=== PATIENT | female | born 1970 | race Caucasian/White ===

== ENCOUNTER → 2018-08-04 | Outpatient (CLI) | payer MEDICAID, SELFPAY ==
--- NOTE | 2018-08-04 11:54 | BI_ITS ---
MAMMOGRAPHY - BILATERAL SCREENING REASON FOR EXAM: Female, 48 years old. Routine annual screening examination. PERTINENT HISTORY: Mother with breast cancer. Grandmother with breast cancer. Bilateral breast implants. TECHNIQUE: Digital bilateral breast yahaira (3D mammographic acquisition) in the CC and MLO projections. 2-D mediolateral oblique (MLO) and craniocaudad (CC) views of both breasts were obtained. CAD: Full Field Digital Mammography with Computer Added Detection was performed. COMPARISON: Comparison is made with prior study dated February 29, 2016 and October 24, 2014. FINDINGS: Breast Composition: The breasts are heterogeneously dense, which may obscure small masses. There is a 1 cm well-defined nodule in the upper central portion of the left breast. A similar-appearing 1 cm nodular densities also seen in the superior outer region of the left breast. Correlation with ultrasound is recommended. Stable appearance of the bilateral breast implants. No other significant abnormalities are identified. BI/SCREEN MAMM (CAD) W/YAHAIRA BILAT IMPRESSION: There are 2, 1 cm nodule seen in the left breast as described. Correlation with ultrasound is recommended. ASSESSMENT CATEGORY: BIRADS Category 0: Incomplete. Need additional imaging evaluation. A letter regarding these results will be sent to the patient by the facility within 30 days. Approximately 10% of breast cancers are not detected by mammography. A normal mammogram should not delay biopsy of a clinically suspicious abnormality. [id number] Electronically Signed: Warren Catherine, at 13:02 EDT , Service support ,
[2018-08-04 17:40] LABS: Absolute Lymphocyte Count 2.01 X10^3/ul (0.83-4.51); Absolute Neutrophil Count 4.4 X10^3/uL (2.0-7.7); Basophil# 0.03 X10^3/uL; Basophil% 0.4 % (0-1); Eosinophil# 0.04 X10^3/uL; Eosinophils% 0.6 % (0-5); Hematocrit 37.2 % (37-47); Hemoglobin 11.9 g/dl (12.0-15.0); Lymphocyte # 2.01 X10^3/ul (4.0); Mean Corpuscular Hgb 25.9 pg (27.0-32.0); Mean Corpuscular Volume 80.9 fL (81-99); Monocyte# 0.69 X10^3/uL; Monocyte% 9.6 % (0-10); Neutrophil # 4.38 X10^3/uL (2.7-7.7); Neutrophil % 61.1 % (47-70); Platelet Count 227 K/mm3 (150-450); RBC Distribution Width CV 17.7 % (11.6-14.6); RBC Distribution Width SD 51.5 fl (35.1-43.9); White Blood Count 7.2 K/mm3 (4.4-11.0)
[2018-08-04 17:50] LABS: POSITIVE COUNT NO; POSITIVE DIFFERENTIAL NO; POSITIVE MORPHOLOGY NO
[2018-08-04 17:56] LABS: ALB/GLOB Ratio 1.2 RATIO (0.9-2.4); AST(SGOT) 19 U/L (15-37); Alanine Aminotransfer ALT/SGPT 22 U/L (13-56); Albumin, Serum 3.9 g/dL (3.2-5.0); Alkaline Phosphatase 49 U/L (45-117); Anion Gap 6 (5-15); BUN 20 mg/dL (7-18); BUN/Creat Ratio 22.1 RATIO (10-20); Chloride 105 mmol/L (98-107); EST Glomerular Filtration Rate 70 mL/min (>60); Est Glom Filt Rate - Afr Amer 85 mL/min (>60); Globulin 3.3 g/dL (2.2-4.2); Glucose 90 mg/dL (74-106); Potassium 3.8 mmol/L (3.5-5.1); Protein, Total 7.2 g/dL (6.4-8.2); Sodium Level 136 mmol/L (136-145); Thyroid Stim Hormone (TSH) 6.63 uIU/mL (0.358-3.74)
== END | disposition home or self-care (01) ==
PROVIDERS: Family Provider Family Medicine; PCP Family Medicine; Referring Provider Family Medicine; Visit Provider Family Medicine
DX: Z12.31 Encounter for screening mammogram for malignant neoplasm of breast (principal); R53.83 Other fatigue; E07.9 Disorder of thyroid, unspecified; I87.2 Venous insufficiency (chronic) (peripheral)
CPT/HCPCS: 36415; 77063; 77067; 80053; 84443; 85025

== ENCOUNTER → 2018-08-09 10:19 | Outpatient (CLI) | payer MEDICAID, SELFPAY ==
--- NOTE | 2018-08-09 10:23 | US_ITS ---
STUDY: ULTRASOUND BREAST - LEFT REASON FOR EXAM: Female, 48 years old. TECHNIQUE: Axial and longitudinal images of the LEFT breast were performed with a high resolution ultrasound transducer. COMPARISON: None. FINDINGS: LEFT Breast: There are 3 small cyst in the upper outer quadrant of the left breast. The largest measures 1.3 x 1.3 x 0.8 cm no obvious masses are identified otherwise. There is intact breast implant. US/Breast Limited Unilateral IMPRESSION: Focal area of fibrocystic disease upper outer quadrant Electronically Signed: Gael Doe, at 16:42 EDT Tel , Service support ,
--- NOTE | 2018-08-09 11:33 | US_ITS ---
STUDY: ULTRASOUND OF THE FEMALE PELVIS - COMPLETE REASON FOR EXAM: Female, 48 years old. Menorrhagia TECHNIQUE: Transabdominal and Transvaginal TECHNICAL QUALITY: Adequate. COMPARISON: None. FINDINGS: The uterus is anteverted and is in a midline position. The uterus measures 9.7 x 5.8 x 5.2 cm. Normal uterine cervix. The endometrium measures 5 mm in thickness, and is hyperechoic. There is an 8 mm cyst in the endometrium. There is no demonstrated myometrial mass. The right ovary is visualized. The right ovary measures 3.4 x 3.2 x 1.9 cm. There is no right ovarian cyst or ovarian mass. There is no visualized right adnexal mass or complex lesion. There is normal arterial and normal venous vascularity. The left ovary is visualized. The left ovary measures 3.8 x 2.7 x 1.7 cm. There is no left ovarian cyst or ovarian mass. There is no visualized left adnexal mass or complex lesion. There is normal arterial and normal venous vascularity. There is no fluid in the cul-de-sac. US/Pelvic (Non ) IMPRESSION: Subcentimeter cyst in the endometrium. Otherwise, normal uterus. Normal bilateral ovaries with normal Doppler flow. Electronically Signed: Scar Faustin, at 18:23 EDT Tel , Service support ,
--- NOTE | 2018-08-09 12:19 | US_ITS ---
STUDY: ULTRASOUND OF THE FEMALE PELVIS - COMPLETE REASON FOR EXAM: Female, 48 years old. Menorrhagia TECHNIQUE: Transabdominal and Transvaginal TECHNICAL QUALITY: Adequate. COMPARISON: None. FINDINGS: The uterus is anteverted and is in a midline position. The uterus measures 9.7 x 5.8 x 5.2 cm. Normal uterine cervix. The endometrium measures 5 mm in thickness, and is hyperechoic. There is an 8 mm cyst in the endometrium. There is no demonstrated myometrial mass. The right ovary is visualized. The right ovary measures 3.4 x 3.2 x 1.9 cm. There is no right ovarian cyst or ovarian mass. There is no visualized right adnexal mass or complex lesion. There is normal arterial and normal venous vascularity. The left ovary is visualized. The left ovary measures 3.8 x 2.7 x 1.7 cm. There is no left ovarian cyst or ovarian mass. There is no visualized left adnexal mass or complex lesion. There is normal arterial and normal venous vascularity. There is no fluid in the cul-de-sac. US/Transvaginal Non- IMPRESSION: Subcentimeter cyst in the endometrium. Otherwise, normal uterus. Normal bilateral ovaries with normal Doppler flow. Electronically Signed: Scar Faustin, at 18:23 EDT Tel , Service support ,
== END ==
PROVIDERS: Family Provider Family Medicine; PCP Family Medicine; Referring Provider Family Medicine; Visit Provider Family Medicine
DX: N92.1 Excessive and frequent menstruation with irregular cycle (principal); R10.2 Pelvic and perineal pain
CPT/HCPCS: 76642; 76830; 76856; 93976

== ENCOUNTER → 2018-08-12 08:19 | Outpatient (CLI) | payer MEDICAID, SELFPAY ==
[2018-08-12 12:32] LABS: Erythrocyte Sedimentation Rate 3 mm/hr (0-20)
[2018-08-12 12:41] LABS: Vitamin B12 348 pg/mL (211-911); Vitamin D,25 Hydroxy 63.3 ng/mL (29.95-100.01)
[2018-08-12 14:11] LABS: CRP < 2.90 mg/L (0.0-3.0); Cholesterol 193 mg/dL (200); Estradiol 50.2 pg/mL; Free T3 2.2 pg/mL (2.18-3.98); High Density Lipoprotein 90 mg/dL; Iron 23 ug/dL (50-170); Rheumatoid Factor < 10.0 IU/mL (<15); T4 Free Direct 0.78 ng/dL (0.76-1.46); Triglycerides 30 mg/dL; Very Low Density Lipoprotein 6 mg/dL (5-40)
[2018-08-14 16:06] LABS: Testosterone, % Free 1.73 % (0.50-2.80); Testosterone, Free 0.28 ng/dL (0.10-0.85); Testosterone, Total 16 ng/dL (8-48); Thyroid Peroxidase AB 18 IU/mL (0-34)
[2018-08-15 14:00] LABS: Thyroglobulin Antibody < 1.0 IU/mL (0.0-0.9)
[2018-08-15 14:11] LABS: ANTINUCLEAR ANTIBODIES DIRECT Negative (Negative)
== END ==
PROVIDERS: Family Provider Family Medicine; PCP Family Medicine; Visit Provider Family Medicine
DX: R53.83 Other fatigue (principal); E03.9 Hypothyroidism, unspecified; M79.10 Myalgia, unspecified site; M25.50 Pain in unspecified joint; N93.8 Other specified abnormal uterine and vaginal bleeding; E53.9 Vitamin B deficiency, unspecified; E55.9 Vitamin D deficiency, unspecified; D64.9 Anemia, unspecified; E78.5 Hyperlipidemia, unspecified
CPT/HCPCS: 36415; 80061; 82306; 82533; 82607; 82670; 82746; 83540; 84144; 84402; 84403; 84439; 84481; 85652; 86038; 86140; 86376; 86431; 86800

== ENCOUNTER → 2020-03-13 15:11 | Outpatient (CLI) | payer OTHER, SELFPAY ==
--- NOTE | 2020-03-13 15:16 | BI_ITS ---
MAMMOGRAPHY - BILATERAL SCREENING REASON FOR EXAM: Female, 50 years old. Routine annual screening examination. PERTINENT HISTORY: Mother with breast cancer. Grandmother with breast cancer. Bilateral breast implants. TECHNIQUE: Digital bilateral breast yahaira (3D mammographic acquisition) in the CC and MLO projections. 2-D mediolateral oblique (MLO) and craniocaudad (CC) views of both breasts were obtained. CAD: Full Field Digital Mammography with Computer Added Detection was performed. COMPARISON: Comparison is made with prior examination dated 08/04/2018 and 02/29/2016. FINDINGS: Breast Composition: The breasts are heterogeneously dense, which may obscure small masses. There is a 1.2 cm x 1.8 cm well-defined nodule in the superior retroareolar region of the left breast. Correlation with ultrasound is recommended. Stable appearance of the bilateral breast implants. No other significant abnormalities are identified. BI/SCRN MAMM (CAD)W/YAHAIRA BILAT IMPRESSION: 1.2 cm x 1.8 cm well-defined nodule in the superior retroareolar region of the left breast. Correlation with ultrasound is recommended. ASSESSMENT CATEGORY: Approximately 10% of breast cancers are not detected by mammography. A normal mammogram should not delay biopsy of a clinically suspicious abnormality. [id number] Electronically Signed: Warren Catherine MD at 8:20 EST , Service support ,
== END ==
PROVIDERS: PCP Family Medicine; Referring Provider Family Medicine; Visit Provider Family Medicine
DX: Z12.31 Encounter for screening mammogram for malignant neoplasm of breast (principal); Z80.3 Family history of malignant neoplasm of breast
CPT/HCPCS: 77063; 77067

== ENCOUNTER → 2020-03-16 12:22 | Outpatient (CLI) | payer OTHER, SELFPAY ==
--- NOTE | 2020-03-16 12:26 | US_ITS ---
STUDY: ULTRASOUND BREAST - LEFT REASON FOR EXAM: Female, 50 years old. Abnormal screening mammogram. TECHNIQUE: Axial and longitudinal images of the LEFT breast were performed with a high resolution ultrasound transducer. # OF IMAGES: 11 COMPARISON: Comparison is made with prior mammogram dated 09/10/2020 and 08/04/2018. FINDINGS: LEFT Breast: The mammographic amount corresponds to a 1.7 cm x 1.7 cm x 0.9 cm cyst at the 1 o''clock position breast at 2 cm from the nipple. US/Breast Limited Unilateral IMPRESSION: The mammographic abnormality corresponds to a 1.7 cm x 1.7 cm x 0.9 cm cyst. ASSESSMENT CATEGORY: BIRADS Category 2: Benign. A letter regarding these results will be sent to the patient by the facility within 30 days. Electronically Signed: Warren Catherine MD at 15:46 EST , Service support ,
== END ==
PROVIDERS: PCP Family Medicine; Referring Provider Family Medicine; Visit Provider Family Medicine
DX: R92.8 Other abnormal and inconclusive findings on diagnostic imaging of breast (principal)
CPT/HCPCS: 76642

== ENCOUNTER 2020-10-14 18:29 | Emergency (ER) | payer SELFPAY ==
[2020-10-14 18:30] VITALS: BP 124/88; PULSE 73; RESP 16; TEMP 36.6; O2SAT 97; BMI 26.6
--- NOTE | 2020-10-14 20:00 | EDS_ITS ---
HPI History of Present Illness Chief Complaint: Head Injury Informant: patient Narrative Narrative: Patient fell on the concrete when a dog jumped at her. Dog did not bite her. She hit her head but no loss of consciousness nausea vomiting. No numbness tingling. She hit her right head. She also scraped hands on both sides. Nothing makes symptoms worse. Pressure stop the bleeding. PFSH PFSH Home Medications cephalexin 500 mg PO Q6 #28 cap 10/14/20 [Rx Last Taken Unknown] Allergy/AdvReac Type Severity Reaction Status Date / Time prochlorperazine AdvReac Other Verified 10/14/20 18:33 [From Compazine] Social History Smoking Status: Unknown if ever smoked ROS ROS ED Constitutional Constitutional ED: Denies fever(s) Eyes Eyes: Denies blurry vision, change in vision or diplopia ENT ENT ED: Denies ear pain or sore throat Cardiovascular Cardiovascular: Denies chest pain Respiratory/Chest Respiratory/Chest: Denies dyspnea Gastrointestinal Gastrointestinal: Denies nausea or vomiting Musculoskeletal Musculoskeletal: Denies back pain or neck pain Integumentary Reports Abrasions and other Neurologic Neurologic: Denies headache(s), paresthesias or weakness Endocrine Endocrinology: Denies polyuria Allergic/Immunologic Allergic/Immunologic ED: Denies urticaria EXAM Physical Exam Const Vital Signs: 10/14/20 18:30 10/14/20 18:37 Temperature 98 F Temperature Source Temporal Pulse Rate 73 Respiratory Rate 16 Respiratory Effort Normal Non-Labored Blood Pressure 124/88 H Blood Pressure Mean 100 Pulse Ox 97 Oxygen Delivery Method Room Air Room Air Positive well nourished and well developed General Appearance ED: well developed and NAD HEENT HEENT Narrative: Patient is a 3 cm laceration above the right eyelash area. No step-off. No active bleeding. No other facial or head injury. Eyes PERRL and EOMs intact bilaterally Neck supple General: Negative for tenderness Chest Wall inspection of chest normal Resp normal respiratory effort Cardio regular rate and regular rhythm GI normal to inspection, nondistended, normoactive bowel sounds and non-tender Palpation: soft Back/Spine no CVA tenderness Cervical Spine: Negative for cervical spine tenderness Thoracic Spine / Upper Back: Negative for thoracic spinal tenderness Lumbar Spine / Lower Back: Negative for lumbar spinal tenderness Extremity Extremity Narrative: Patient has abrasion on the dorsum of all her fingers mostly overlying the proximal interphalangeal joints. On the right index long and ring finger she has a slight laceration. There is a small amount of extensor tendon visible on the dorsum of the right finger. I watch this through full range of motion. There is no injury to the tendon itself. There is no tenderness to the bones. She has excellent range of motion. No indication of fracture. This looks to be all soft tissue injury. Neuro oriented x3 Sensorium / Orientation: alert Psych mental status grossly normal Skin Skin Narrative: Lacerations as above. General Skin Exam: other MDM MDM MDM Narrative Medical decision making narrative: Procedure: Suture of multiple lacerations: I sterilely prepped draped and scrubbed each of these. I started with a laceration above her right eyebrow. This was anesthetized with 4 cc of 1% lidocaine with epinephrine. Good anesthesia was achieved. We scrubbed and irrigated it. It was sutured with 10 continuous throws of 6-0 Ethilon with good cosmesis and hemostasis and she tolerated it well instructions were given. We then turned our attention her right hand. This was thoroughly scrubbed again. I anesthetize each one of the lacerations over the index long and ring finger proximal interphalangeal joint muscles. Age took 1 cc of lidocaine. I then copiously scrubbed irrigated these. There is no bleeding. I looked at them through full range of motion both passive and active range of motion. There is a barely visible tendon on the ring finger. The extensor tendon is more visible on the middle finger. But there is no sign of injury or laceration to it. I do not have a visible tendon on the index. The index was sutured with one stitch middle and ring were sutured with two. She tolerated this well. Each stitch had the needle watch going in and out to avoid tendon. I put the hand through full range of motion afterwards. We actually irrigated and scrubbed during the procedure also. Patient tolerated this well. I will place her on Keflex because she has a fair amount of tissue injury near these injury lacerations. There is a lot of abrasions on the lacerations diffusely on the hand. The one on the long finger was around laceration and loss tissue that I sutured. It does dog near the corner slightly but these should resolve over time. The laceration on her f orehead had significant abrasions to the lower portion that created an indistinct edge. Discharge Plan Triage Chief Complaint: Head Injury ED Provider: Abilio Villavicencio Dx/Rx/DC Orders Clinical Impression: Fall from slip, trip, or stumble, Forehead laceration, Laceration of multiple sites of hand and fingers Instructions: ED Laceration: All Closures Prescriptions: New cephalexin [cephalexin] 500 MG capsule 500 mg PO Q6 Qty: 28 RF: 0 Primary Care Provider: Darlene Livingston Referrals: Darlene Livingston DO [Primary Care Provider] - 3-5 Days (Sutures out in forehead in 3 to 5 days. Sutures out in hand in 10-14 days.) Disposition Disposition: Home, Self Care
[2020-10-14] MEDS: Lidocaine 1% /Epi 1:100 (20ml) 20 ML Vial INFILT (21:23)
[2020-10-14] MEDS: Diphth,Pertuss(Acell),Tet Vac 0.5 ML Vial IM (21:24)
[2020-10-14] MEDS: Cephalexin 250 MG Capsule 500 MG PO (21:25)
[2020-10-14 21:27] VITALS: BP 152/99; PULSE 74; RESP 15; O2SAT 100
== END 2020-10-14 21:27 | disposition home or self-care (01) ==
PROVIDERS: Emergency Provider Emergency Medicine; PCP Family Medicine
DX: S01.81XA Laceration without foreign body of other part of head, initial encounter (principal); W01.0XXA Fall on same level from slipping, tripping and stumbling without subsequent striking against object, initial encounter; S61.210A Laceration without foreign body of right index finger without damage to nail, initial encounter; S61.214A Laceration without foreign body of right ring finger without damage to nail, initial encounter; Z23 Encounter for immunization
CPT/HCPCS: 12001; 12013; 90471; 90715; 99283

== ENCOUNTER → 2021-07-02 | Outpatient (CLI) | payer OTHER, SELFPAY ==
--- NOTE | 2021-07-02 08:19 | BI_ITS ---
MAMMOGRAPHY - BILATERAL SCREENING REASON FOR EXAM: Female, 51 years old. Routine annual screening examination. PERTINENT HISTORY: Mother with breast cancer. Grandmother with breast cancer. Bilateral breast implants. TECHNIQUE: Digital bilateral breast yahaira (3D mammographic acquisition) in the CC and MLO projections. 2-D mediolateral oblique (MLO) and craniocaudad (CC) views of both breasts were obtained. CAD: Full Field Digital Mammography with Computer Added Detection was performed. COMPARISON: Comparison is made with prior study dated 09/10/2020 and 08/04/2018. FINDINGS: Breast Composition: The breasts are heterogeneously dense, which may obscure small masses. The previously seen nodular density in the anterior superior retroareolar region of the left breast has decreased in size. It presently measures 0.9 cm. Stable appearance of the bilateral breast implants. No other significant abnormalities are identified. BI/SCRN MAMM (CAD)W/YAHAIRA BILAT IMPRESSION: Stable bilateral screening mammogram. Yearly follow-up mammogram recommended. (A) ASSESSMENT CATEGORY: BIRADS Category 2: Benign. A letter regarding these results will be sent to the patient by the facility within 30 days. Approximately 10% of breast cancers are not detected by mammography. A normal mammogram should not delay biopsy of a clinically suspicious abnormality. [id number] Electronically Signed: Warren Catherine MD at 9:35 EDT ,
== END | disposition home or self-care (01) ==
PROVIDERS: PCP Family Medicine; Visit Provider Family Medicine
DX: Z12.31 Encounter for screening mammogram for malignant neoplasm of breast (principal); Z98.82 Breast implant status; Z80.3 Family history of malignant neoplasm of breast
CPT/HCPCS: 77063; 77067

== ENCOUNTER → 2022-03-20 | Outpatient (CLI) | payer OTHER, SELFPAY ==
[2022-03-20 15:20] LABS: Vitamin B12 890 pg/mL (211-911); Vitamin D,25 Hydroxy 56.2 ng/mL
[2022-03-20 15:24] LABS: Thyroid Stim Hormone (TSH) 0.73 uIU/mL (0.358-3.74)
== END | disposition home or self-care (01) ==
PROVIDERS: PCP Family Medicine; Visit Provider Family Medicine
DX: E55.9 Vitamin D deficiency, unspecified (principal); E53.9 Vitamin B deficiency, unspecified; E03.9 Hypothyroidism, unspecified
CPT/HCPCS: 36415; 82306; 82607; 84443

== ENCOUNTER → 2022-06-09 | Outpatient (CLI) | payer OTHER, SELFPAY ==
[2022-06-09 15:06] LABS: Absolute Lymphocyte Count 1.49 X10^3/uL (0.83-4.51); Absolute Neutrophil Count 2.4 X10^3/uL (2.0-7.7); Basophil# 0.04 X10^3/uL; Basophil% 0.9 % (0-1); Eosinophil# 0.03 X10^3/uL; Eosinophils% 0.7 % (0-5); Hematocrit 44.1 % (37-47); Hemoglobin 14.4 g/dL (12.0-15.0); Lymphocyte # 1.49 X10^3/ul (0.83-4.51); Lymphocyte % 34.7 % (19-41); Mean Corp Hgb Conc 32.7 g/dL (32-36); Mean Corpuscular Volume 94.8 fL (81-99); Mean Platelet Vol. 11.1 fl (6.2-12.0); Monocyte# 0.36 X10^3/uL; Monocyte% 8.4 % (0-10); NRBC Flagged by Analyzer 0 % (0-5); Neutrophil # 2.36 X10^3/uL (2.7-7.7); Neutrophil % 55.1 % (47-70); Platelet Count 205 K/mm3 (150-450); RBC Distribution Width CV 13.8 % (11.6-14.6); RBC Distribution Width SD 47.9 fl (35.1-43.9); Red Blood Count 4.65 M/mm3 (4.2-5.4); White Blood Count 4.3 K/mm3 (4.4-11.0)
[2022-06-09 15:15] LABS: Progesterone Level 0.44 ng/mL (See Comment)
[2022-06-09 19:13] LABS: ALB/GLOB Ratio 1.1 RATIO (0.9-2.4); AST(SGOT) 22 U/L (15-37); Alanine Aminotransfer ALT/SGPT 21 U/L (13-56); Albumin, Serum 3.9 g/dL (3.2-5.0); Alkaline Phosphatase 82 U/L (45-117); Anion Gap 4 (5-15); BUN 18 mg/dL (7-18); BUN/Creat Ratio 16.5 RATIO (10-20); Calcium,Total 9.8 mg/dL (8.5-10.1); Chloride 108 mmol/L (98-107); Cholesterol 205 mg/dL (200); Creatinine, Serum 1.09 mg/dL (0.55-1.02); EST Glomerular Filtration Rate 56 mL/min (>60); Est Glom Filt Rate - Afr Amer 67 mL/min (>60); Globulin 3.7 g/dL (2.2-4.2); Glucose 91 mg/dL (74-106); High Density Lipoprotein 86 mg/dL; Potassium 3.9 mmol/L (3.5-5.1); Protein, Total 7.6 g/dL (6.4-8.2); Sodium Level 139 mmol/L (136-145); Triglycerides 55 mg/dL; Very Low Density Lipoprotein 11 mg/dL (5-40)
== END | disposition home or self-care (01) ==
LOC: BFHLAB 11:14
PROVIDERS: PCP Family Medicine; Referring Provider Family Medicine; Visit Provider Family Medicine
DX: N93.8 Other specified abnormal uterine and vaginal bleeding (principal); Z51.81 Encounter for therapeutic drug level monitoring; E78.5 Hyperlipidemia, unspecified
CPT/HCPCS: 36415; 80053; 80061; 82670; 84144; 85025

== ENCOUNTER → 2022-08-22 | Outpatient (CLI) | payer OTHER, SELFPAY ==
--- NOTE | 2022-08-22 07:05 | BI_ITS ---
MAMMOGRAPHY - BILATERAL SCREENING REASON FOR EXAM: Female, 52 years old. Routine annual screening examination. PERTINENT HISTORY: Mother with breast cancer. Grandmother with breast cancer. Bilateral breast implants. TECHNIQUE: Digital bilateral breast yahaira (3D mammographic acquisition) in the CC and MLO projections. 2-D mediolateral oblique (MLO) and craniocaudad (CC) views of both breasts were obtained. CAD: Full Field Digital Mammography with Computer Added Detection was performed. COMPARISON: Comparison is made with prior study of July 02, 2021 and March 13, 2020. FINDINGS: Breast Composition: The breasts are heterogeneously dense, which may obscure small masses. There are no dominant masses or suspicious calcifications. Breast implants are seen as compared to prior study. No other significant abnormalities are identified. BI/SCRN MAMM (CAD)W/YAHAIRA BILAT IMPRESSION: Stable bilateral screening mammogram. Yearly follow-up mammogram recommended. (A) ASSESSMENT CATEGORY: BIRADS Category 2: Benign. A letter regarding these results will be sent to the patient by the facility within 30 days. Approximately 10% of breast cancers are not detected by mammography. A normal mammogram should not delay biopsy of a clinically suspicious abnormality. [id number] Electronically Signed: Warren Catherine MD at 9:58 EDT ,
== END | disposition home or self-care (01) ==
LOC: OPBI 07:03
PROVIDERS: PCP Family Medicine; Referring Provider Family Medicine; Visit Provider Family Medicine
DX: Z12.31 Encounter for screening mammogram for malignant neoplasm of breast (principal); Z80.3 Family history of malignant neoplasm of breast
CPT/HCPCS: 77063; 77067

== ENCOUNTER → 2023-02-25 | Outpatient (CLI) | payer OTHER, SELFPAY ==
--- OUTSIDE RECORDS SUMMARY | 2023-02-25 12:02 | XMS RPT_ITS | CCD ---
Author Name Unknown Address [address] [place] [address] Organization [facility] Care Team Providers Care Accounting Generalist Name Role Phone Vanessa Martin Dorita Primary Care Provider Unavaila ble Allergies Allergy Classification Reported Allergen(s) Allergy Type Date of Onset Reaction(s) Facility (1 source) Prochlorperazine Drug Allergy 10-28-2018 [facility] Medications Current Medications Medication Drug Class(es) Dates Sig (Normalized) Sig (Original) levothyroxine sodium 0.05 mg oral tablet (1 source) l-Thyroxine Start: 01-07-2019 take 1 tablet by mouth once daily in the morning levothyroxine (SYNTHROID, LEVOTHROID) 50 MCG tablet TAKE 1 TABLET BY MOUTH EVERY DAY IN THE MORNING ON EMPTY STOMACH 1 01/07/2019 Active 24 hr venlafaxine 75 mg extended release oral capsule (2 sources) Serotonin and Norepinephrine Reuptake Inhibitor Start: 03-10-2019 take 1 capsule by mouth once daily venlafaxine (Effexor XR) 37.5 MG 24 hr capsule Take 1 (one) capsule (37.5 mg total) by mouth daily . 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; Translations: [Bipolar II disorder] Onset: 11-23-2018 11-23-2018 Chronic Encounters Encounter Date Encounter Type Care Provider Facility Start: 05-02-2020 End: 05-02-2020 Orders Only Adriana Cedeño Work Phone: [facility] Plan of Treatment Date Care Activity Detail Author Start: 10-18-2019 Influenza vaccination given Se quential Influenza Vaccine (#1) [facility] Start: 2019 Administration of he rpes zoster vaccine Zoster Vaccines (1 of 2) [facility] Start: 2019 Screening for malign ant neoplasm of colon [facility] Start: 1987 Hepatitis C antibody , confirmatory test Hepatitis C Screening [facility] Start: 1985 COVID-19 Vaccine (1 of 2) COVID-19 V accine (1 of 2) [facility] Start: 01-05-1984 HIV screening HIV Screening [facility] Start: 01-05-1972 History and physical examination, annual for health maintenance Wellness Visit [facility] Start: 1969 Screening for malign ant neoplasm of cervix Pap Smear [facility] Start: 1969 Screening mammography Mammogram [facility] Start: 1969 Tetanus vaccination Tetanus: Every 1 0yrs [facility] Social History Date Type Detail Facility Start: 03-10-2019 Tobacco smoking status NHIS Never sm oker [facility] Start: 03-10-2019 Tobacco use and exposure Never used [facility] Start: 03-10-2019 Alcohol intake Current drinke r of alcohol (finding) [facility] Sex Assigned At Not on file [facility] Additional Source Comments FOR RECORDS PERTAINING TO PATIENTS WHO ARE OR HAVE BEEN ENROLLED IN A CHEMICAL DEPENDENCY/SUBSTANCEABUSE PROGRAM, SOME INFORMATION MAY BE OMITTED. This clinical summary was aggregated from multiple sources. Caution should be exercised in using it in the provision of clinical care. This summary normalizes information from multiple sources, and as a consequence, information in this document may materially change the coding, format and clinical context of patient data. In addition, data may be omitted in some cases. CLINICAL DECISIONS SHOULD BE BASED ON THE PRIMARY CLINICAL RECORDS. [facility] [employer] provides no warranty or guarantee of the accuracy or completeness of information in this document.
[2023-02-25 16:15] LABS: Free T3 2.7 pg/mL (2.18-3.98); T4 Free Direct 1.18 ng/dL (0.76-1.46)
== END | disposition home or self-care (01) ==
LOC: BFHLAB 11:38
PROVIDERS: PCP Family Medicine; Visit Provider Family Medicine
DX: E03.9 Hypothyroidism, unspecified (principal)
CPT/HCPCS: 36415; 84439; 84443; 84481

== ENCOUNTER → 2023-08-24 | Outpatient (CLI) | payer OTHER, SELFPAY ==
--- NOTE | 2023-08-24 07:27 | BI_ITS ---
MAMMOGRAPHY - BILATERAL SCREENING REASON FOR EXAM: Female, 53 years old. Routine annual screening examination. PERTINENT HISTORY: Mother with breast cancer. Grandmother with breast cancer. Bilateral breast implants. TECHNIQUE: Digital bilateral breast yahaira (3D mammographic acquisition) in the CC and MLO projections. 2-D mediolateral oblique (MLO) and craniocaudad (CC) views of both breasts were obtained. CAD: Full Field Digital Mammography with Computer Added Detection was performed. COMPARISON: Comparison is made with prior study dated August 22, 2022 and July 02, 2021. FINDINGS: Breast Composition: The breasts are heterogeneously dense, which may obscure small masses. There are no dominant masses or suspicious calcifications. Stable appearance of the bilateral breast implants. No other significant abnormalities are identified. There has been no significant change since the prior study. BI/SCRN MAMM (CAD)W/YAHAIRA BILAT IMPRESSION: Stable bilateral screening mammogram. Yearly follow-up mammogram recommended. (A) ASSESSMENT CATEGORY: BIRADS Category 2: Benign. A letter regarding these results will be sent to the patient by the facility within 30 days. Approximately 10% of breast cancers are not detected by mammography. A normal mammogram should not delay biopsy of a clinically suspicious abnormality. [id number] Electronically Signed: Warren Catherine MD at 9:32 EDT ,
== END | disposition home or self-care (01) ==
PROVIDERS: PCP Family Medicine; Referring Provider Family Medicine; Visit Provider Family Medicine
DX: Z12.31 Encounter for screening mammogram for malignant neoplasm of breast (principal); Z80.3 Family history of malignant neoplasm of breast
CPT/HCPCS: 77063; 77067

== ENCOUNTER → 2023-12-21 | Outpatient (CLI) | payer OTHER, SELFPAY ==
[2023-12-21 16:10] LABS: Vitamin B12 556 pg/mL (211-911); Vitamin D,25 Hydroxy 48.4 ng/mL
[2023-12-21 16:11] LABS: T4 Free Direct 1.29 ng/dL (0.76-1.46); Thyroid Stim Hormone (TSH) 0.665 uIU/mL (0.358-3.740)
[2023-12-21 16:49] LABS: Hemoglobin A1c 5.2 % (3.8-5.6)
== END | disposition home or self-care (01) ==
LOC: BFHLAB 13:31
PROVIDERS: PCP Family Medicine; Referring Provider Family Medicine; Visit Provider Family Medicine
DX: E03.9 Hypothyroidism, unspecified (principal); E55.9 Vitamin D deficiency, unspecified; E53.8 Deficiency of other specified B group vitamins; R73.01 Impaired fasting glucose
CPT/HCPCS: 36415; 82306; 82607; 83036; 84439; 84443; 84481